=== PATIENT | female | born 1995 ===

== ENCOUNTER 2019-12-23 15:12 | Inpatient (IN) | payer OTHER ==
[2019-12-23 15:54] VITALS: BMI 41.5
[2019-12-23] MEDS ORDERED: Carboprost 250 MCG/ML AMP IM PRN (16:24)
[2019-12-23] MEDS ORDERED: Diphenoxylate HCl/Atropine Tablet PO PRN ×2 (16:24)
[2019-12-23] MEDS ORDERED: Promethazine HCl 25 MG/ML VIAL IM PRN ×2 (16:24→19:05)
[2019-12-23] MEDS ORDERED: Acetaminophen 500 MG TAB PO PRN (16:24)
[2019-12-23] MEDS ORDERED: Butorphanol Tartrate 1 MG/ML VIAL SLOW IVP PRN (16:24)
[2019-12-23] MEDS ORDERED: Lidocaine 1% (PF) 30 ML VIAL SC PRN (16:24)
[2019-12-23] MEDS ORDERED: Ondansetron PF 4 MG/2 ML Vial IVP PRN ×2 (16:24→19:05)
[2019-12-23] MEDS ORDERED: NS / Oxytocin 40 units/1000ml 1,000 ML IV PRN (16:24)
[2019-12-23] MEDS ORDERED: hydrALAZINE 20 MG/ML VIAL SLOW IVP PRN (16:24)
[2019-12-23] MEDS ORDERED: Misoprostol 200 MCG TAB PR PRN (16:24)
[2019-12-23] MEDS ORDERED: HYDROcodone/Acetaminophen 5/325 mg Tablet PO PRN (16:24)
[2019-12-23] MEDS ORDERED: NS w/ Oxytocin 10 units 500 ML IV SCH (16:30)
[2019-12-23] MEDS ORDERED: NS w/ Oxytocin 10 units 500 ML ONE (16:36)
[2019-12-23] MEDS ORDERED: Oxytocin 10 UNITS/ML VIAL ONE (16:36)
[2019-12-23 17:11] LABS: Hemoglobin 10.5 g/dL (12.0-16.0); Mean Corpuscular HGB CONC 32.3 g/dL (32.0-36.0); Mean Corpuscular Hemoglobin 27.2 pg (27.0-31.0); Mean Corpuscular Volume 84.4 fL (78.0-98.0); Mean Platelet Volume 9.5 fL (7.4-10.4); Platelet Count 245 thou/uL (130-400); RBC Distribution Width 13.5 % (11.5-14.5); Red Blood Cell (RBC) Count 3.87 mill/uL (4.20-5.40); White Blood Cell (WBC) Count 8.5 thou/uL (4.8-10.8)
[2019-12-23 17:52] LABS: HBSAg Index 0.14 S/CO (0-0.99); Hep B Surf Ag Non-Reactive S/CO (NonReactive)
[2019-12-23 17:53] LABS: Syphilis Antibody Nonreactive (Nonreactive)
[2019-12-23 18:11] LABS: ALT (SGPT) 10 U/L (8-55); AST (SGOT) 26 U/L (5-34); Albumin 3.3 g/dL (3.5-5.0); Alkaline Phosphatase 127 U/L (40-110); Anion Gap 17 mmol/L (10-20); BUN (Urea Nitrogen) 8 mg/dL (7.0-18.7); Bilirubin, Total 0.3 mg/dL (0.2-1.2); Calc. Creatinine Clearance 202 mL/min (70-130); Calcium 8.1 mg/dL (7.8-10.44); Carbon Dioxide 17 mmol/L (22-29); Chloride 105 mmol/L (98-107); Estimated GFR-MDRD Greater than 90; Globulin 3.7 g/dL (2.4-3.5); Glucose 73 mg/dL (70-105); Potassium 4.3 mmol/L (3.5-5.1); Sodium 135 mmol/L (136-145)
[2019-12-23] MEDS ORDERED: Bupivacaine 0.5% 10 ML VIAL ONE (18:35)
[2019-12-23] MEDS ORDERED: Fentanyl 100 MCG/2 ML VIAL ONE (18:35)
[2019-12-23] MEDS ORDERED: Fentanyl 4 mcg/Bup 0.1% Cadd 100 ML ONE (18:37)
[2019-12-23] MEDS ORDERED: Fentanyl 100 MCG/2 ML VIAL I-THECAL ONE (19:04)
[2019-12-23] MEDS ORDERED: diphenhydrAMINE 50 MG/ML VIAL IVP PRN (19:05)
[2019-12-23] MEDS ORDERED: Lactated Ringer's 500 ML IV PRN (19:05)
[2019-12-23] MEDS ORDERED: Naloxone HCl 0.4 mg/ml Vial IVP PRN ×2 (19:05)
[2019-12-23] MEDS ORDERED: EPHEDRINE 25 MG/5 ML SYRINGE SLOW IVP PRN (19:05)
[2019-12-23] MEDS ORDERED: Acetaminophen 325 MG TAB PO PRN (19:05)
[2019-12-23] MEDS ORDERED: Bupivacaine 0.25% 10 ML VIAL EPIDURAL ONE (19:05)
[2019-12-23] MEDS ORDERED: Communication Order-Pharmacy FS SCH (19:15)
[2019-12-23] MEDS ORDERED: Fentanyl 4 mcg/Bupivacaine 0.1% Cassette 100 ML EPIDURAL SCH (19:15)
[2019-12-23] MEDS: Lactated Ringer's 1,000 ML IV SCH (19:51)
[2019-12-24] MEDS ORDERED: Fentanyl 4 mcg/Bup 0.1% Cadd 100 ML ONE (02:06)
[2019-12-24] MEDS: Lactated Ringer's 1,000 ML IV SCH (04:15)
--- NOTE | 2019-12-24 06:02 | PDOC.OPDEL ---
OB Operative/Delivery Note Delivery Dr/Surgeon: Bentley Pre-Delivery Diagnosis: medically indicated induction Procedure/Post Delivery Dx: spontaneous vaginal delivery Weeks gestation: 39 Anesthesia: epidural - Findings A Sex: female - 1 min: 8 - 5 min: 8 - Additional Findings/Plan Placenta delivered: spontaneous Repaired Obstetrical Laceration: none Estimated blood loss: 100ml qbl Compilations/Other Findings: nuchal cord x 1 clamped and cut for delivery of head. Post delivery plan: routine recovery
[2019-12-24] MEDS ORDERED: traMADol HCl 50 MG TAB PO PRN (06:03)
[2019-12-24] MEDS ORDERED: Preparation H Ointment 28 GM TUBE PR PRN (06:03)
[2019-12-24] MEDS ORDERED: Milk Of Magnesia 30 ML UDCUP PO PRN (06:03)
[2019-12-24] MEDS ORDERED: Benzocaine-Menthol 82.5 ML CAN TOP PRN (06:03)
[2019-12-24] MEDS ORDERED: Lanolin Ointment 7 GM TUBE TOP PRN (06:03)
[2019-12-24] MEDS ORDERED: hydrALAZINE 20 MG/ML VIAL SLOW IVP PRN (06:03)
[2019-12-24] MEDS ORDERED: Bisacodyl 10 MG SUPP PR PRN (06:03)
[2019-12-24] MEDS ORDERED: Acetaminophen 500 MG TAB PO PRN (06:04)
[2019-12-24] MEDS ORDERED: NS / Oxytocin 40 units/1000ml 1,000 ML IV SCH (06:15)
[2019-12-24] MEDS: Ferrous Sulfate 325 MG TAB PO SCH ×2 (07:49→13:36)
[2019-12-24] MEDS: Prenatal Vitamin 1 TAB PO SCH (07:49)
[2019-12-24] MEDS: Docusate Calcium (SURFAK) 240 MG CAP PO SCH ×2 (08:30→21:07)
[2019-12-24] MEDS ORDERED: Adacel (T-DAP) 0.5 ML SYRINGE IM ONE (09:00)
--- NOTE | 2019-12-25 06:54 | PDOC.PP ---
Post Progress Note Post Day #: 1 Subjective: NAEO. Patient doing well. Had some back pain at site of epidural which was much improved with IBP and tramadol. PO intake tolerated: yes Flatus: yes Ambulation: yes Vital Signs (12 hours) Temp Pulse Resp BP Pulse Ox 12/25/19 06:20 98.2 F 96 16 128/59 L 97 12/25/19 00:54 98.6 F 83 14 103/56 L 97 12/24/19 21:05 98.7 F 74 14 122/70 96 Weight Weight 96.615 kg - Physical Examination General: NAD Respiratory: non-labored breathing Abdominal: no distention, appropriately TTP Fundus firm & at: below umbilicus Neurological: no gross focal deficits Psychiatric: A&Ox3, normal affect Result Diagrams: 12/23/19 16:48 12/23/19 16:48 Additional Labs: Post Labs Blood Type A POSITIVE 12/23/19 19:25 Hep Bs Antigen Non-Reactive S/CO (NonReactive) 12/23/19 16:48 - Assessment/Plan s/p , PPD1 -Doing well, no concerns -Likely d/c today pending baby bilirubin -F/u at [facility] with Dr. Hagan in 6 weeks
[2019-12-25] MEDS: Ferrous Sulfate 325 MG TAB PO SCH (07:07)
[2019-12-25 08:43] VITALS: BP 114/57; TEMP 97.8
[2019-12-25] MEDS: Docusate Calcium (SURFAK) 240 MG CAP PO SCH (08:46)
[2019-12-25] MEDS: Prenatal Vitamin 1 TAB PO SCH (08:46)
== END 2019-12-25 12:40 | disposition home or self-care (01) | DRG 807 ==
LOC: L&D 15:12 → 3SW 12-24 09:18
PROVIDERS: ADMIT Obstetrics & Gynecology; ATTEND Obstetrics & Gynecology
PROC: 10E0XZZ Delivery of Products of Conception, External Approach (ICD-10-PCS; principal; 2019-12-23)
DX: O14.94 Unspecified pre-eclampsia, complicating childbirth (principal); Z37.0 Single live birth; Z3A.38 38 weeks gestation of pregnancy
CPT/HCPCS: 36415; 51702; 80053; 85027; 86780; 86850; 86900; 86901; 87340; J2405; J2590; J3010; J3490